=== PATIENT | female | born 1975 | race Caucasian/White ===

== ENCOUNTER 2024-07-06 14:56 | Emergency (ER) | payer OTHER ==
[2024-07-06] MEDS: Ketorolac 30 MG/ML SDV IM ONE (17:24)
== END 2024-07-06 17:28 | disposition home or self-care (01) ==
LOC: SUPCPDRO 14:56 → VM.ED 14:56
DX: S30.0XXA Contusion of lower back and pelvis, initial encounter (principal); M85.89 Other specified disorders of bone density and structure, multiple sites; W10.8XXA Fall (on) (from) other stairs and steps, initial encounter
CPT/HCPCS: 72128; 72131; 96372; 99283; 99284; J1885